=== PATIENT | male | born 1945 | race Two or more races ===

== ENCOUNTER 2020-09-12 15:17 | Emergency (ER) | payer MEDICARE, OTHER ==
[~2020-09-12] VITALS: Ht 162.6 cm; Wt 77.1 kg
[2020-09-12 15:43] VITALS: BP 136/95
[2020-09-12] MEDS ORDERED: IBUPROFEN 800 MG TAB PO ONE (19:15)
== END 2020-09-12 20:35 | disposition home or self-care (01) ==
LOC: ER 15:17
DX: M19.041 Primary osteoarthritis, right hand (principal)
CPT/HCPCS: 29125; 73130